=== PATIENT | female | born 1950 | race African-American/Black ===

== ENCOUNTER 2019-06-08 15:28 | Inpatient (IN) | payer MEDICARE, OTHER ==
[~2019-06-08] VITALS: Ht 165.1 cm; Wt 43.2 kg
[2019-06-08] MEDS ORDERED: SODIUM CHLORIDE 0.9% 1,000 ML IV ONE ×2 (16:08)
[2019-06-08] MEDS ORDERED: ONDANSETRON HCL 4 MG/2 ML VIAL IV ONE (16:15)
[2019-06-08 16:21] LABS: Basophils # (auto) 0 uL; Eosinophils # (auto) 0 uL; Eosinophils % (auto) 0.1 % (0.0-7.0); Hematocrit 51.3 % (36.0-46.0); Platelet Count (auto) 184 10^3/uL (140-450); Red Cell Distribution Width 15.9 % (11.8-14.3)
[2019-06-08 16:22] LABS: Basophils % (auto) 0.1 % (0.0-2.0); Hemoglobin 16.1 g/dL (12.2-16.2); Lymphocytes % (auto) 23.4 % (10.0-50.0); Mean Corpuscular Hemoglobin 26.8 pg (28.0-32.0); Mean Corpuscular Hgb Conc. 31.5 g/dL (32.0-36.0); Monocytes % (auto) 11.6 % (0.0-12.0); Neutrophils # (auto) 5.4 uL; Neutrophils % (auto) 64.8 % (37.0-80.0); Nucleated Red Blood Cells % 0.2 %; Red Blood Cells 6.03 10^6/uL (4.0-5.20); White Blood Cell 8.4 10^3/uL (4.4-10.8)
[2019-06-08 16:49] LABS: Albumin 4.5 g/dL (3.4-5.0); Anion Gap 12 (5-15); Blood Urea Nitrogen 36 mg/dL (7-18); Calcium 10.3 mg/dL (8.5-10.1); Carbon Dioxide 21 mmol/L (21-32); Chloride 112 mmol/L (98-107); Glucose 137 mg/dL (74-106); Potassium 3.8 mmol/L (3.5-5.1); Sodium 145 mmol/L (136-145)
[2019-06-08 16:51] LABS: Alanine Aminotransferase 15 U/L (13-56); Alkaline Phosphatase 132 U/L (45-117); Aspartate Aminotransferase 24 U/L (15-37); BUN/Creatinine Ratio 17.1; Bilirubin, Total 0.8 mg/dL (0.2-1.0); GFR African American 30 mL/min; GFR Non-African American 25 mL/min; Lactic Acid w/Reflex 3.3 mmol/L (0.4-2.0); Total Protein 10.5 g/dL (6.4-8.2)
[2019-06-08] MEDS ORDERED: ACETAMINOPHEN 500 MG TAB PO PRN (17:45)
[2019-06-08] MEDS ORDERED: MORPHINE SULF INJ 2 MG/ML SYRINGE 1ML IV PRN ×2 (17:45)
[2019-06-08] MEDS ORDERED: ONDANSETRON HCL 4 MG/2 ML VIAL IV PRN (17:45)
[2019-06-08] MEDS ORDERED: IPRATROPIUM BROM 0.5 MG/2.5ML INH SOL NEB PRN (17:45)
[2019-06-08] MEDS ORDERED: METOCLOPRAMIDE HCL 5MG/ml INJ 2ml VIAL IV ONE (17:45)
[2019-06-08] MEDS ORDERED: ALBUTEROL SULF 2.5 MG/0.5ML(0.5%) NEB SOLN NEB PRN (17:45)
[2019-06-08] MEDS ORDERED: LORazepam 0.5 MG TAB PO PRN (17:45)
[2019-06-08] MEDS ORDERED: NITROGLYCERIN 0.4 MG SL TAB SL PRN (17:45)
[2019-06-08 17:47] LABS: Amylase 170 U/L (25-115); Lipase 99 U/L (73-393)
[2019-06-08 17:53] LABS: Urine Bacteria MANY /hpf (None Seen); Urine Blood 1+ /uL (Negative); Urine Hyaline Cast FEW /lpf (0 - 2); Urine Mucus FEW (None Seen); Urine Specific Gravity 1.015 (1.001-1.035); Urine WBC 153 /hpf (0 - 5)
[2019-06-08] MEDS: SODIUM CHLORIDE 0.9% 1,000 ML IV SCH (17:54)
[2019-06-08] MEDS: cefTRIAXone 1GM/50ML D5W 50 ML IV SCH (18:00)
--- NOTE | 2019-06-08 18:35 | NUR ---
PT ASSESSED FOR PRN TX. PT IS RESTING WITH NO SOB NOTED. TX IS NOT INDICATED AT THIS TIME. HR 91 RR 20 95% ON ROOM AIR. B/S DECREASED.
[2019-06-08 19:22] VITALS: BP 119/64
--- NOTE | 2019-06-08 20:35 | NUR ---
Telemetry admit from ER CESAR ZAMORAOLINDAYASMIN admitted to Telemetry unit after SBAR received. Patient oriented to Huey Rodriguez, primary RN, unit, room, bed, and unit policies regarding patient care and visiting hours. Patient now on continuous telemetry monitoring, tele box #19. Patient weighed by bedscale. The patient is uncooperative stating that she is tired and angry because she has been in the ER all day. She states that she just wants to sleep. Encouraged to call if they need something.
[2019-06-08 20:45] VITALS: BP 140/88
[2019-06-08] MEDS: DOCUSATE SOD 100 MG CAP PO SCH (21:32)
[2019-06-08] MEDS: ATORVASTATIN 20 MG TAB PO SCH (21:32)
[2019-06-08] MEDS: METOPROLOL TARTRATE 50 MG TAB PO SCH (21:33)
[2019-06-08] MEDS ORDERED: DOCUSATE SOD 100 MG CAP PO SCH (22:00)
[2019-06-08 22:10] VITALS: BP 112/67
[2019-06-09] MEDS: HYDROcodone-ACET 5/325MG TAB PO PRN (01:22)
--- NOTE | 2019-06-09 02:00 | NUR ---
IV removal Patient's right wrist IV infiltrated and has been removed. DC'd with clean sterile technique, catheter fully intact. Pressure dressing applied to site. Patient tolerated well.
--- NOTE | 2019-06-09 03:15 | NUR ---
IV insertion IV access obtained, via clean sterile technique by inserting 22 gauge catheter at the right upper FA after 3 attempt(s). IV secured properly. No trauma to site. Patient tolerated well.
[2019-06-09] MEDS: SODIUM CHLORIDE 0.9% 1,000 ML IV SCH ×3 (03:48→18:44)
[2019-06-09 05:46] VITALS: BP 135/64
--- NOTE | 2019-06-09 06:45 | NUR ---
IV LEAK Patient's right forearm IV began to leak. Unable to correct the leaking from IV. Will endorse to day shift.
--- NOTE | 2019-06-09 07:15 | NUR ---
Opening Shift Note Assumed care of patient, awake and alert. No S/S of distress/SOB or pain. Instructed on POC and to call for assist PRN, will continue to monitor for changes. Bed in lowest position, bed alarm on, call light within reach, bed rails up x2 and locked. Signed: 06/09/19 at 1056 by JACKIE CARDOSO <Co-Signature Required> Co-Signed: 06/09/19 at 1056 by Martha Caban RN
[2019-06-09 08:00] VITALS: BP 153/77
--- NOTE | 2019-06-09 08:00 | NUR ---
IV ASSESSMENT ATTEMPTED TO FLUSH IV. IV IS LEAKING. UNABLE TO OBTAIN IV ACCESS AT THIS TIME
--- NOTE | 2019-06-09 08:01 | NUR ---
Ultrasound Entry Level Finance at bedside completing BLE arterial Ultrasound. Signed: 06/09/19 at 0832 by JACKIE CARDOSO <Co-Signature Required> Co-Signed: 06/09/19 at 0832 by Martha Caban RN
--- NOTE | 2019-06-09 08:52 | NUR ---
PAGED PAGED PSYCHOSOCIAL REHABILITATION COUNSELOR HOSPITALIST IN ORDER TO OBTAIN ORDER FOR MIDLINE
[2019-06-09 09:00] VITALS: BP 153/77
--- NOTE | 2019-06-09 09:11 | NUR ---
Bilat LE US results Received call from radiology. Reported US results. See imaging for further information. Per radiology recommended further eval of BLE and ABD pelvis. Per radiology patient is neg for DVT in bilat LE
[2019-06-09] MEDS: CITALOPRAM HYDROBR 20 MG TAB PO SCH (09:41)
[2019-06-09] MEDS: METOPROLOL TARTRATE 50 MG TAB PO SCH (09:42)
[2019-06-09] MEDS: AMIODARONE HCL 200 MG TAB PO SCH (09:42)
[2019-06-09] MEDS: DOCUSATE SOD 100 MG CAP PO SCH ×2 (09:42→22:05)
[2019-06-09] MEDS: FAMOTIDINE 20 MG TAB PO SCH (09:43)
[2019-06-09] MEDS: ASPirin 81 mg TAB PO SCH (09:43)
[2019-06-09] MEDS: ENSURE CLEAR Mixed Berry 8oz Carton PO SCH ×3 (09:44→18:44)
[2019-06-09] MEDS: ENOXAPARIN SOD 30 MG/0.3 ML SYRINGE SC SCH (09:44)
[2019-06-09] MEDS: LACTULOSE 20Gm/30ML SOLN PO SCH (09:44)
--- NOTE | 2019-06-09 10:21 | NUR ---
Usama CUELLAR RETURN CALL RECEIVED CALL FROM Usama CUELLAR. RECEIVED ORDERS. REREAD ORDERS BACK TO . WILL CONT TO MONITOR.
--- NOTE | 2019-06-09 10:40 | NUR ---
MIDLINE Midline RN at bedside performing procedure. Signed: 06/09/19 at 1054 by JACKIE CARDOSO SN <Co-Signature Required> Co-Signed: 06/09/19 at 1054 by Martha Caban RN
--- NOTE | 2019-06-09 11:00 | NUR ---
WOUND CARE NOTE: IN TO SEE PATIENT AT THIS TIME PER WOUND CONSULT REQUEST. PATIENT HAS CONTRACTED LIMBS. PATIENT CURRENT RECEIVING MIDLINE AT THIS TIME, UNABLE TO TURN PATIENT TO ASSESS SACRUM. PER BEDSIDE NURSE, PATIENT HAS BLANCHABLE RED SACRUM. BEDSIDE NURSE WILL PHOTOGRAPH WOUND SHORTLY. PATIENT ADMITTED TO [facility] WITH DIAGNOSIS OF FAILURE TO THRIVE. CURRENT GEETA SCORE IS 12. PATIENT ONLY WEIGHS 35 KG. DIETARY CONSULT HAS BEEN ORDERED. SKIN/WOUND CARE PLAN IMPLEMENTED. SPECIALTY AIR MATTRESS ORDERED AT THIS TIME. PATIENT TO BE PLACED, PENDING DELIVERY BY [facility]. ADDED RECOMMENDATIONS: BID/PRN APPLICATIONS WITH MOISTURE BARRIER CREAM, OPTIFOAM GENTLE SACRAL DRESSING PREVENTATIVE, FREQUENT TURN SCHEDULE Q 2 HOURS, PRN CONDITION PERMITS, WITH PRESSURE REDISTRIBUTION USING PILLOWS/WEDGES, CONTINUED MONITORING BY WOUND CARE TEAM.
--- NOTE | 2019-06-09 11:04 | NUR ---
Midline Placement Patient educated on need for midline placement. All risks and benefits explained and all questions and concerns addresses prior to procedure. 20g/8cm midline inserted via right brachial vein using Ultrasound. Sterile technique utilized. Blood return obtained from single lumen and flushed easily with NS using proper technique. Midline secured with saline lock; biodisc and occlusive dressing applied. Primary RN notified. Midline lot #[id number].
--- NOTE | 2019-06-09 11:05 | NUR ---
Midline Update Midline placement completed. Right upper arm midline 20 gauge inserted. Lab at bedside. Morning labs obtained. Signed: 06/09/19 at 1108 by JACKIE CARDOSO SN <Co-Signature Required> Co-Signed: 06/09/19 at 1108 by Martha Caban RN
--- NOTE | 2019-06-09 11:09 | NUR ---
Nutrition consult/assessment Notes please see attached link for complete assessment Est. Needs IBW 56 [id number] kcal (25-30 kcal/kgBW), 44-56 gms pro (0.8-1.0 gms/kgBW r/t elev RFT). Will continue to monitor pertinent labs and reassess nutrient need prn. Addendum: 06/09/19 at [address] Amended: Links added.
[2019-06-09 11:22] LABS: Basophils # (auto) 0 uL; Basophils % (auto) 0.1 % (0.0-2.0); Eosinophils # (auto) 0.1 uL; Hemoglobin 11.7 g/dL (12.2-16.2); Mean Corpuscular Hgb Conc. 30.9 g/dL (32.0-36.0); Mean Corpuscular Volume 86.6 fL (80.0-100.0); Monocytes # (auto) 0.8 uL; Nucleated Red Blood Cells % 0.1 %
[2019-06-09] MEDS: cefTRIAXone 1GM/50ML D5W 50 ML IV SCH (11:23)
--- NOTE | 2019-06-09 11:23 | NUR ---
Low heart rate Received call from [facility], patient's heart rate was ranging from 60's, bradycardia at 50s then back to 60's/70s'. Entered room, found patient awake and alert watching TV. Asymptomatic to dudley cardia. No reports of CP, SOB, dizziness, change in vision or fatigue. Will notify
[2019-06-09 11:24] LABS: Hematocrit 37.9 % (36.0-46.0); Lymphocytes # (auto) 2.7 uL; Lymphocytes % (auto) 31.2 % (10.0-50.0); Mean Corpuscular Hemoglobin 26.8 pg (28.0-32.0); Neutrophils # (auto) 5.2 uL; Neutrophils % (auto) 58.7 % (37.0-80.0); Platelet Count (auto) 134 10^3/uL (140-450); Red Blood Cells 4.38 10^6/uL (4.0-5.20); Red Cell Distribution Width 16.2 % (11.8-14.3); White Blood Cell 8.8 10^3/uL (4.4-10.8)
[2019-06-09 11:29] LABS: BUN/Creatinine Ratio 22.9; Calcium 9.1 mg/dL (8.5-10.1); Potassium 3.8 mmol/L (3.5-5.1)
--- NOTE | 2019-06-09 12:15 | NUR ---
HOME MED-AMIODARONE PER PATIENT DUE TO HX OF ME SHE WAS PLACED ON THE ANTIARRHYTHMIC DUE TO HER HEART "SKIPPING BEATS". PER PATIENT SHE ALSO REPORTS SHE HAS AN EXTENSIVE HISTORY OF DRUG USE OF CRACK COCAINE.
--- NOTE | 2019-06-09 12:17 | NUR ---
at bedside Usama Taveras at bedside
--- NOTE | 2019-06-09 12:25 | NUR ---
MD-LOW HEART RATE REVIEWED CURRENT VITAL SIGNS WITH Usama CUELLAR. PER D/C METOPROLOL AT THIS TIME.
--- NOTE | 2019-06-09 12:26 | NUR ---
LOW HEART RATE PER MD NO NEW INTERVENTION, CONT TO MONITOR HEART RATE
[2019-06-09 13:00] VITALS: BP 150/77
--- NOTE | 2019-06-09 13:04 | NUR ---
CARDIO CONSULT IZABELA CUEVAS AT BEDSIDE
--- NOTE | 2019-06-09 17:14 | NUR ---
assessment Patient is a 68 year old female who is alert and answering appropriately. Patient informed me prior to admission she lived home with her sister Alisha Palma and functioned with assistance of her grandson daniel. Patient informed me she will return home on discharge and Daniel will transport her home. Patient informed me she has a wheelchair for home use. Patient informed me she feels safe returning home on discharge. Patient may benefit from home health for safety eval on discharge. Patient verbalized understanding and agreed to discharge plan home on discharge. Addendum: 06/09/19 at 1717 by Gita NEGRO Amended: Links added.
--- NOTE | 2019-06-09 17:16 | NUR ---
LIVING ARRANGEMENTS PER PATIENT SHE LIVES WITH HER SISTER DAGOBERTO AND DAGOBERTO'S . PER PATIENT SHE WILL GO BACK HOME WITH SISTER UPON C/D
[2019-06-09 18:40] VITALS: BP 182/89
--- NOTE | 2019-06-09 21:00 | NUR ---
Pt refused Vital signs.
--- NOTE | 2019-06-09 21:10 | NUR ---
Respiratory note: PT ASSESSED FOR PRN MED NEB TX. HR 84, RR 18, SPO2 98% ON R/A, BS CLEAR. NO SIGNS OF ANY RESPIRATORY DISTRESS NOTED. ADVISED PT TO CALL IF TX IS NEEDED.
[2019-06-09] MEDS: ATORVASTATIN 20 MG TAB PO SCH (22:05)
--- NOTE | 2019-06-10 | NUR ---
Pt placed on specialty air bed.
[2019-06-10 05:00] VITALS: BP 154/87
[2019-06-10] MEDS: SODIUM CHLORIDE 0.9% 1,000 ML IV SCH ×2 (05:29→09:38)
[2019-06-10 08:00] VITALS: BP 155/80
[2019-06-10] MEDS: ENSURE CLEAR Mixed Berry 8oz Carton PO SCH ×3 (08:00→18:33)
--- NOTE | 2019-06-10 08:00 | NUR ---
Opening Shift Note Assumed care of patient, awake and alert. No S/S of distress/SOB or pain. Bed is in lowest, locked position with side rails up x2 and call light within reach. Instructed on POC and to call for assist PRN, will continue to monitor for changes Q1hr and PRN.
[2019-06-10 09:00] VITALS: BP 180/96
[2019-06-10] MEDS: cefTRIAXone 1GM/50ML D5W 50 ML IV SCH (09:36)
[2019-06-10] MEDS: LACTULOSE 20Gm/30ML SOLN PO SCH (10:00)
[2019-06-10] MEDS: AMIODARONE HCL 200 MG TAB PO SCH (10:00)
--- NOTE | 2019-06-10 10:05 | NUR ---
ELEVATED BP BP ASSESSED: 180/96 AND HR 54. PAGED CARDIOLOGY FOR ORDERS. IZABELA WORKMAN RETURNED PAGE. RECEIVED ORDER TO CANCEL STRESS TEST AND OBTAINED ORDER FOR SCHEDULED AND PRN BP MEDS.
[2019-06-10] MEDS: CITALOPRAM HYDROBR 20 MG TAB PO SCH (10:15)
[2019-06-10] MEDS ORDERED: amLODIPine BESYLATE 5 MG TAB PO ONE (10:15)
[2019-06-10] MEDS: DOCUSATE SOD 100 MG CAP PO SCH ×3 (10:16→21:48)
[2019-06-10] MEDS: ASPirin 81 mg TAB PO SCH (10:16)
[2019-06-10] MEDS: FAMOTIDINE 20 MG TAB PO SCH (10:16)
[2019-06-10] MEDS: ENOXAPARIN SOD 30 MG/0.3 ML SYRINGE SC SCH (10:24)
[2019-06-10] MEDS: hydrALAZINE HCL 20 MG/ML VL IV PRN (10:25)
--- NOTE | 2019-06-10 10:25 | NUR ---
ANIMAL GROOMER AT BEDSIDE ANIMAL GROOMER JI IN TO SEE PATIENT. OBTAINED INFORMED CONSENT FOR PROCEDURE TOMORROW. PT VERBALIZED UNDERSTANDING.
[2019-06-10] MEDS: HYDROcodone-ACET 5/325MG TAB PO PRN (10:26)
--- NOTE | 2019-06-10 10:50 | NUR ---
MD AT BEDSIDE DR CUELLAR UPDATING PATIENT ON POC. VERBALIZED UNDERSTANDING.
[2019-06-10] MEDS ORDERED: METOPROLOL TARTRATE 50 MG TAB PO ONE (11:00)
--- NOTE | 2019-06-10 12:50 | NUR ---
AMA TO SMOKE PATIENT EXPRESSING DESIRE TO GO SMOKE. AMA TO SMOKE SIGNED. FAMILY TO TAKE PT OUT IN WHEELCHAIR. EXPLAINED THE RISKS OF SMOKING, PT VERBALIZED UNDERSTANDING. INFORMED PT SHE NEEDS TO BE BACK WITHIN 30 MINUTES.
[2019-06-10 13:00] VITALS: BP 158/92
--- NOTE | 2019-06-10 13:10 | NUR ---
PT RETURNED TO UNIT PATIENT ESCORTED BY FAMILY RETURNED TO UNIT FROM SMOKING WITHOUT INCIDENT.
--- NOTE | 2019-06-10 15:05 | NUR ---
ASSESSED PT FOR PRN MED NEB TX. PT ON RA WITH SPO2 90%, HR 89, RR 20, WITH DIMINISHED BS. NO SOB NO RESPIRATORY DISTRESS NOTED. PT AWAKE AND ALERT AND AWARE OF MED NEB BREATHING TX.
[2019-06-10 17:00] VITALS: BP_SYST 126; BP_SYST 147; BP_DIAS 61; BP_DIAS 79
[2019-06-10 18:00] VITALS: BP 132/78
--- NOTE | 2019-06-10 19:28 | NUR ---
Opening Shift Note Assumed care of patient, awake and alert x 4. No S/S of distress/SOB. Bed is in lowest position and locked. Call light within reach. Board updated. Huertas catheter secured to leg and collection bag hangs below bladder to non-moveable part of bedframe.Specialty mattress on bedframe. Instructed on POC and to call for assist PRN, will continue to monitor for changes Q1hr and PRN.
[2019-06-10] MEDS: ATORVASTATIN 20 MG TAB PO SCH (21:14)
--- NOTE | 2019-06-10 21:53 | NUR ---
Dinoing hospitalist because patient has had sustained elevated lactic acid trending upward. Patient admitted to lower quadrant abdominal pain and had evidence of UTI on admission, currently receiving Rocephin 1 gm IV Daily. Current lactic acid levels from today were 5.6 at 1812, 3.3 before that. Patient also has increased BUN/ Creatinine, 40 and 1.75. Urine output has been 100 ml since 1900, 330 mls during previous shift. Vitals: Temp: 98.2, HR: 76, BP: 132/78, O2 sat: 95% on RA, RR: 18.
[2019-06-10] MEDS ORDERED: METOPROLOL TARTRATE 50 MG TAB PO SCH (22:00)
--- NOTE | 2019-06-10 22:56 | NUR ---
Spoke to IZABELA Gaitan. Orders received: 1) Lactic Acid for 0300, 2) 1 liter bolus of 0.9 sodium chloride over one hour now. Orders repeated, verified, and placed.
[2019-06-10] MEDS ORDERED: SODIUM CHLORIDE 0.9% 1,000 ML IV ONE (23:00)
[2019-06-11] MEDS: SODIUM CHLORIDE 0.9% 1,000 ML IV SCH (00:54)
[2019-06-11 05:00] VITALS: BP 120/89
--- NOTE | 2019-06-11 06:18 | NUR ---
CHG bath has been performed. New linen over bedframe. Patient placed in clean gown.
[2019-06-11] MEDS: ENSURE CLEAR Mixed Berry 8oz Carton PO SCH ×3 (08:00→18:09)
[2019-06-11 09:00] VITALS: BP 167/80
[2019-06-11] MEDS: CITALOPRAM HYDROBR 20 MG TAB PO SCH (09:22)
[2019-06-11] MEDS: ASPirin 81 mg TAB PO SCH (09:22)
[2019-06-11] MEDS: LACTULOSE 20Gm/30ML SOLN PO SCH (09:22)
[2019-06-11] MEDS: ENOXAPARIN SOD 30 MG/0.3 ML SYRINGE SC SCH (09:23)
[2019-06-11] MEDS: FAMOTIDINE 20 MG TAB PO SCH (09:23)
[2019-06-11] MEDS: AMIODARONE HCL 200 MG TAB PO SCH (09:23)
[2019-06-11] MEDS: DOCUSATE SOD 100 MG CAP PO SCH ×2 (09:23→22:15)
[2019-06-11] MEDS: cefTRIAXone 1GM/50ML D5W 50 ML IV SCH (09:24)
[2019-06-11 10:24] LABS: INR 1.26 (0.9-1.15); Partial Thromboplastin Time 31.7 sec (23.64-32.05)
[2019-06-11 10:29] LABS: Basophils # (auto) 0 uL; Basophils % (auto) 0.3 % (0.0-2.0); Eosinophils # (auto) 0.1 uL; Hematocrit 40.1 % (36.0-46.0); Monocytes # (auto) 0.6 uL; Neutrophils # (auto) 3.6 uL
[2019-06-11 10:33] LABS: Eosinophils % (auto) 2.2 % (0.0-7.0); Hemoglobin 13.1 g/dL (12.2-16.2); Lymphocytes # (auto) 1.5 uL; Lymphocytes % (auto) 25.5 % (10.0-50.0); Mean Corpuscular Hemoglobin 27.1 pg (28.0-32.0); Mean Corpuscular Hgb Conc. 32.6 g/dL (32.0-36.0); Mean Corpuscular Volume 83.2 fL (80.0-100.0); Monocytes % (auto) 10.4 % (0.0-12.0); Neutrophils % (auto) 61.6 % (37.0-80.0); Nucleated Red Blood Cells % 0.4 %; Platelet Count (auto) 134 10^3/uL (140-450); Red Blood Cells 4.82 10^6/uL (4.0-5.20); Red Cell Distribution Width 15.6 % (11.8-14.3); White Blood Cell 5.8 10^3/uL (4.4-10.8)
[2019-06-11 11:03] LABS: Calcium 8.7 mg/dL (8.5-10.1); Potassium 3.6 mmol/L (3.5-5.1)
--- NOTE | 2019-06-11 11:42 | NUR ---
Care transferred to FITO Nice.
--- NOTE | 2019-06-11 11:50 | NUR ---
Opening Note Received report form Job PAYTON. Patient is awake, alert and oriented. Patient is sitting in wheelchair in hallway. Patient is angry stating she wants to be taken outside to smoke. Patient has a Huertas catheter in place, patent and draining pale yellow urine. Reviewed plan of care with patient, patient verbalized understanding. Will continue to monitor Q1 and PRN.
--- NOTE | 2019-06-11 12:33 | NUR ---
Patient taken down to slab lifting supervisor
[2019-06-11 13:00] VITALS: BP 142/83
--- NOTE | 2019-06-11 14:28 | NUR ---
Call from laborer bituminous paving lab rep called and informed this RN the patient not having the procedure today per MD. Patient to be brought back up to room.
--- NOTE | 2019-06-11 14:55 | NUR ---
Patient back to room
--- NOTE | 2019-06-11 15:25 | NUR ---
Respiratory note: ASSESSED PATIENT FOR PRN BREATHING TX. NO PRN BREATHING TX INDICATED. PATIENT IS AWAKE AND ALERT, NO RESPIRATORY DISTRESS NOTED. PATIENT IS ON ROOM AIR SPO2 94%, RR 20, HR 68. PATIENT IS AWARE TO HAVE RT PAGED IF BREATHING TX IS NEEDED. WILL CONTINUE TO MONITOR PATIENT.
[2019-06-11 17:00] VITALS: BP 194/110
--- NOTE | 2019-06-11 18:02 | NUR ---
Patient resting in bed No signs or symptoms of distress noted at this time. Will continue to monitor Q1 hour and PRN.
--- NOTE | 2019-06-11 18:25 | NUR ---
elevated blood pressure assessed patients blood pressure, reading was 185/104. PRN hydralazine given. Will continue to monitor and reassess.
[2019-06-11] MEDS: hydrALAZINE HCL 20 MG/ML VL IV PRN (18:31)
--- NOTE | 2019-06-11 18:50 | NUR ---
Reassessed blood pressure Reassessed patients blood pressure 158/78 heart rate 88. Will continue to monitor Q1 hour and PRN.
--- NOTE | 2019-06-11 19:17 | NUR ---
Closing Note Report given to film processing shift supervisor RN. Patient resting in bed, no signs or symptoms of distress noted at this time.
[2019-06-11 20:00] VITALS: BP 185/104
--- NOTE | 2019-06-11 20:50 | NUR ---
Respiratory note: PT ASSESSED FOR PRN MED NEB TX. HR 86, RR 16, SPO2 99% ON R/A. NO SIGNS OF ANY RESPIRATORY DISTRESS NOTED. ADVISED PT TO CALL IF TX NEEDED.
[2019-06-11 22:00] VITALS: BP 168/95
[2019-06-11] MEDS: ATORVASTATIN 20 MG TAB PO SCH (22:15)
[2019-06-12] MEDS: SODIUM CHLORIDE 0.9% 1,000 ML IV SCH ×3 (00:01→21:30)
--- NOTE | 2019-06-12 01:40 | NUR ---
PT HAD LARGE FORMED BM IN THE BED. COMPLETE LINEN CHANGE WITH KAREL CARE AND NEW GOWN.PT PULLED UP IN BED. WHILE CHANGING LINEN A BRANCH BANKER AND A CIGARETTE WAS FOUND IN THE BED UNDERNEATH THE PATIENT. BRANCH BANKER LABELED AND PLACED AT NURSES STATION.WILL CONTINUE TO MONITOR.
[2019-06-12 02:52] VITALS: BP 168/95
[2019-06-12] MEDS: hydrALAZINE HCL 20 MG/ML VL IV PRN ×2 (04:16→15:32)
[2019-06-12 05:00] VITALS: BP 134/68
--- NOTE | 2019-06-12 07:09 | NUR ---
pt assessed for prn hhn tx. pt is on room air, spo2 96%, hr 87, rr 17. no s.s of respiratory distress. pt aware to have rt paged if sob or tx needed.
--- NOTE | 2019-06-12 07:45 | NUR ---
Morning note patient resting in bed with eyes closed, respirations even and unlabored, no distress noted. Fall precautions in place with bed in lowest locked position with call light within reach. Patient on speciality mattress per MD's orders.
[2019-06-12] MEDS: ENSURE CLEAR Mixed Berry 8oz Carton PO SCH ×3 (08:00→18:00)
--- NOTE | 2019-06-12 08:15 | NUR ---
Suctioning set up at bedside for safety. Strict aspirations precautions in place.
[2019-06-12 09:00] VITALS: BP 139/77
--- NOTE | 2019-06-12 09:30 | NUR ---
Requested SCDs per MD's order. norman Schneider, verbalized understanding.
[2019-06-12] MEDS: LACTULOSE 20Gm/30ML SOLN PO SCH (09:54)
[2019-06-12] MEDS: FAMOTIDINE 20 MG TAB PO SCH (09:55)
[2019-06-12] MEDS: CLOPIDOGREL BISULFATE 75 MG TAB PO SCH (09:56)
[2019-06-12] MEDS: AMIODARONE HCL 200 MG TAB PO SCH (09:56)
[2019-06-12] MEDS: DOCUSATE SOD 100 MG CAP PO SCH ×2 (10:00→21:23)
[2019-06-12] MEDS: CITALOPRAM HYDROBR 20 MG TAB PO SCH (10:03)
[2019-06-12] MEDS: cefTRIAXone 1GM/50ML D5W 50 ML IV SCH (10:05)
[2019-06-12] MEDS: ASPirin 81 mg TAB PO SCH (10:06)
--- NOTE | 2019-06-12 10:50 | NUR ---
Swallow evaluation placed Patient coughed after drinking thin liquids and has food particles sitting in her mouth. Drool coming from her mouth. Patient swallowed pills when placed in applesauce with no complications noted.
--- NOTE | 2019-06-12 11:15 | NUR ---
MD was at bedside - Dr. Usama Taveras POC discussed with this RN. Orders received and read back to verify.
--- NOTE | 2019-06-12 11:50 | NUR ---
Patient attempting to give staff members santoyo to purchase cigarettes Smoking cessation education provided to the patient. Patient verbalized understanding. Patient requesting staff member to transport her to the smoking area. Informed patient that staff members cannot do that. Patient verbalized understanding.
--- NOTE | 2019-06-12 12:03 | NUR ---
Swallow evaluation completed.
--- NOTE | 2019-06-12 12:18 | NUR ---
SWALLOW EVALUATED WITH NURSING PRESENT. PATIENT ABLE TO TOLERATE PUREE DIET TEXTURE WITH THIN LIQUIDS. PATIENT UNABLE TO COMPLETE SWALLOW OF MECHANICAL SOFT. RECOMMEND NO STRAWS.
--- NOTE | 2019-06-12 12:41 | NUR ---
Patient requesting family be called This RN called the phone numbers obtained from patient for Sharad (patient's brother) and Alisha (patient's sister). The phone number for Sharad is incorrect. Female answered and stated "you have the wrong number. No one here with the name Sharad." No answer from the phone number for Alisha. Phone number for Sharad listed under next of kin called ([phone]), different number from previous number called. Female answered and stated "you have the wrong number." Updated patient. Patient verbalized understanding.
[2019-06-12 13:00] VITALS: BP 156/89
--- NOTE | 2019-06-12 14:00 | NUR ---
Patient refused to turn Pressure ulcer prevention education provided to the patient. Patient verbalized understanding. Patient refused to turn. Patient able to turn self independently. Addendum: 06/12/19 at 1507 by Charlotte Whitney RN Amended: Links added.
--- NOTE | 2019-06-12 15:20 | NUR ---
Nutrition Follow-up Notes Wt.: 54.0 kg as of yesterday. Pt's asleep, no immediate family member at bedside when rounded this morning. Pt' no signs of distress noted, had swallow eval by ST earlier, currently on Pureed Cardiac diet with fair PO intake aeb 70% ave. consumed meals (x6) in last 2.5 days. Est. Needs IBW 56 [id number] kcal (25-30 kcal/kgBW), 44-56 gms pro (0.8-1.0 gms/kgBW r/t elev RFT). Will continue to monitor pertinent labs and reassess nutrient need prn. Labs: No new labs today; 06/11/19 Gluc 119 H, Cl 113 H Skin: Trace scale 19, low risk, skin intact per highway traffic control technician. GI: Pt had 1 BM this morning per highway traffic control technician. PES: Altered nutrition related lab values r/t acute/chronic medical condition aeb elev RFT hypercalcemia, hyperglycemia Increased nutrient needs r/t current/chronic/nutritional status aeb 95% IBW, BMI 19.8 kg/m2, decreased muscle mass, on ONS with <75% consumed meals Will continue to monitor PO intake, skin status, pertinent labs and weight trend. F/u in 3 to 5 days. Rec.: 1.) Consider Ensure Enlive 1 carton TID instead of ensure clear. 2.) Continue close supervision and feeding assistance prn during meals. 3.) Refer pt to CDE/RD for further nutrition education and weight monitoring upon discharge. 4.) Continue current plan of care.
[2019-06-12 17:00] VITALS: BP 121/81
--- NOTE | 2019-06-12 18:30 | NUR ---
Closing note patient resting in bed with even and unlabored respirations, no distress noted. Fall precautions in place with bed in lowest locked position and call light within reach. Suction set up at bedside for safety. Strict aspiration precautions in place. Patient able to turn self independently. Bilateral SCDs in place per MD's order. Addendum: 06/12/19 at 1922 by Charlotte Whitney RN Patient's personal wheelchair at bedside.
--- NOTE | 2019-06-12 19:10 | NUR ---
Care endorsed to FITO Richard.
--- NOTE | 2019-06-12 20:00 | NUR ---
open note assumed care of pt. upon entering room pt awake, alert and oriented x4. bed locked, low and 2x rails up. pt updated on plan of care. pt on room air, no distress noted or expressed. pt had no questions at this time. call light in reach, will round q1hr and prn. will turn q2hr and prn.
[2019-06-12 21:00] VITALS: BP 149/85
[2019-06-12] MEDS: ATORVASTATIN 20 MG TAB PO SCH (21:16)
[2019-06-12] MEDS: HYDROcodone-ACET 5/325MG TAB PO PRN (21:18)
[2019-06-13 04:46] VITALS: BP 158/78
[2019-06-13] MEDS: hydrALAZINE HCL 20 MG/ML VL IV PRN ×2 (04:54→18:04)
--- NOTE | 2019-06-13 08:00 | NUR ---
Morning note patient resting in bed with eyes closed, respirations even and unlabored, no distress noted. Fall precautions in place with bed in lowest locked position with call light within reach. Patient on speciality mattress per MD's orders. Patient's personal wheelchair at bedside. SCDs to BLE per MD's order. Will continue to monitor q1hr & PRN.
[2019-06-13 09:00] VITALS: BP 165/79
--- NOTE | 2019-06-13 09:10 | NUR ---
RE: elevated BP BP 165/79. Unable to administer PRN BP medications at this time per MD's orders. Will continue to monitor q1hr & PRN.
[2019-06-13] MEDS: CLOPIDOGREL BISULFATE 75 MG TAB PO SCH (09:12)
[2019-06-13] MEDS: cefTRIAXone 1GM/50ML D5W 50 ML IV SCH (09:12)
[2019-06-13] MEDS: ASPirin 81 mg TAB PO SCH (09:13)
[2019-06-13] MEDS: FAMOTIDINE 20 MG TAB PO SCH (09:15)
[2019-06-13] MEDS: CITALOPRAM HYDROBR 20 MG TAB PO SCH (09:17)
[2019-06-13] MEDS: LACTULOSE 20Gm/30ML SOLN PO SCH (09:20)
[2019-06-13] MEDS: DOCUSATE SOD 100 MG CAP PO SCH ×2 (09:20→21:45)
[2019-06-13] MEDS: ENSURE CLEAR Mixed Berry 8oz Carton PO SCH ×3 (09:20→18:37)
[2019-06-13] MEDS: AMIODARONE HCL 200 MG TAB PO SCH (09:20)
[2019-06-13] MEDS: SODIUM CHLORIDE 0.9% 1,000 ML IV SCH ×2 (09:20→12:28)
[2019-06-13] MEDS: HYDROcodone-ACET 5/325MG TAB PO PRN ×2 (09:23→18:03)
--- NOTE | 2019-06-13 10:45 | NUR ---
MD was at bedside - Dr. Usama Taveras Notified MD of patient's elevated BP and not able to administer PRN BP medications. MD verbalized understanding. BP to be reassessed when able to administer PRN BP medication.
[2019-06-13 13:00] VITALS: BP 146/81
--- NOTE | 2019-06-13 13:50 | NUR ---
Patient's god-daughter/caregiver at bedside Alisha, patient's god-daughter, at bedside. Updated Alisha on POC and possible discharge on Friday. Alisha verbalized understanding. Alisha and her , Sandro, are the patient's primary caregivers and who the patient resides with. Updated phone numbers received. Alisha- Sandro Alisha stated "We haven't seen Sharad, her brother, in over a year." Alisha to be listed as the next of kin.
[2019-06-13 17:00] VITALS: BP 171/94
--- NOTE | 2019-06-13 18:16 | NUR ---
Closing note patient resting in bed with even and unlabored respirations, no distress noted. Fall precautions in place with bed in lowest locked position and call light within reach. Suction set up at bedside for safety. Strict aspiration precautions in place. Patient able to turn self independently. Bilateral SCDs in place per MD's order. Patient's personal wheelchair at bedside.
--- NOTE | 2019-06-13 19:00 | NUR ---
Care endorsed to FITO Richard.
--- NOTE | 2019-06-13 19:12 | NUR ---
ASSESSED PT @ THIS TIME FOR PRN MED NEB TX. PT IS AWAKE AND ALERT AND RESTING COMFORTABLY IN BED. SHE STATES HER BREATHING IS DOING FINE. NO DISTRESS NOTED. CURRENTLY ON R/A W/ SPO2 99%, HR 83, RR 18 AND BS ARE CLEAR AND DIMINISHED T/O. SHE IS AWARE TO CALL IF SHE FEELS SOB.
--- NOTE | 2019-06-13 20:05 | NUR ---
open note assumed care of pt. upon entering room pt awake, alert and oriented x4. pt on room air, no distress noted or expressed. pt bed locked, low and 2x rails up. pt has keller in place. pt updated on plan of care, no questions at this time. pt call light in reach, will round q1hr and prn. will also remind and assist pt to turn q1hr and prn.
[2019-06-13] MEDS: ATORVASTATIN 20 MG TAB PO SCH (21:45)
[2019-06-13 22:00] VITALS: BP 155/76
--- NOTE | 2019-06-13 22:00 | NUR ---
pt given bed bath and total linen change. pt tolerated well.
[2019-06-13 23:30] VITALS: BP 144/74
[2019-06-14] MEDS: SODIUM CHLORIDE 0.9% 1,000 ML IV SCH ×2 (03:30→13:39)
[2019-06-14] MEDS: hydrALAZINE HCL 20 MG/ML VL IV PRN (04:26)
[2019-06-14 05:34] VITALS: BP 161/103
[2019-06-14 05:58] VITALS: BP 148/71
[2019-06-14] MEDS: LACTULOSE 20Gm/30ML SOLN PO SCH ×3 (09:07→10:00)
[2019-06-14] MEDS: FAMOTIDINE 20 MG TAB PO SCH (09:08)
[2019-06-14] MEDS: AMIODARONE HCL 200 MG TAB PO SCH (09:08)
[2019-06-14] MEDS: ASPirin 81 mg TAB PO SCH (09:08)
[2019-06-14] MEDS: cefTRIAXone 1GM/50ML D5W 50 ML IV SCH (09:08)
[2019-06-14] MEDS: CLOPIDOGREL BISULFATE 75 MG TAB PO SCH (09:09)
[2019-06-14] MEDS: ENSURE CLEAR Mixed Berry 8oz Carton PO SCH ×2 (09:09→13:39)
[2019-06-14] MEDS: HYDROcodone-ACET 5/325MG TAB PO PRN ×2 (09:09→15:10)
[2019-06-14] MEDS: CITALOPRAM HYDROBR 20 MG TAB PO SCH ×3 (09:09→10:00)
[2019-06-14] MEDS: DOCUSATE SOD 100 MG CAP PO SCH ×2 (09:09→09:22)
[2019-06-14 09:38] VITALS: BP 156/93
--- NOTE | 2019-06-14 10:20 | NUR ---
Respiratory note: ROUTINE PRN TX ASSESSMENT. HR 91, RR 20, POX 91% ON RA, BREATH SOUNDS ARE CLEAR. NO SOB OR DISTRESS NOTED. PT WAS NOTIFY TO HAVE RT PAGE FOR [place] TX.
[2019-06-14 13:19] VITALS: BP 108/82
[2019-06-14 13:27] VITALS: BP 108/82
--- NOTE | 2019-06-14 17:07 | NUR ---
re-assessment Ss consult [facility] for PT and safety eval. Patient has been given a list of medicare providers. Per patient she has no preference. order faxed to [facility] ph: [phone] fx: [phone] per Olga [facility] has accepted and service to start within 24-48hrs. Pt agrees to discharge plan with [facility]. Addendum: 06/14/19 at 1708 by Gita NEGRO Amended: Links added.
--- NOTE | 2019-06-14 17:23 | NUR ---
Discharge instructions given as ordered. Encourage to follow up with PMD as instructed. All questions and concerns addressed. Patient verbalized understanding. Medication reconciliation form completed and copy given to patient. IV removed with catheter intact, pressure dressing applied, keller catheter removed. Telemetry unit returned to ICU. Patient taken to vehicle via wheelchair with all personal belongings, accompanied by staff and family member. No distress noted at time of departure.
== END 2019-06-14 17:22 | disposition home health service (06) | DRG 299 ==
LOC: ER 15:37 → TELE 15:38 → TELE-WESTW 20:25
PROVIDERS: ADMIT Nurse Practitioner Acute Care; ATTEND Family Medicine
DX: I70.203 Unspecified atherosclerosis of native arteries of extremities, bilateral legs (principal); N17.0 Acute kidney failure with tubular necrosis; N39.0 Urinary tract infection, site not specified; I69.354 Hemiplegia and hemiparesis following cerebral infarction affecting left non-dominant side; R62.7 Adult failure to thrive; E86.0 Dehydration; I10 Essential (primary) hypertension; J44.9 Chronic obstructive pulmonary disease, unspecified; F32.9 Major depressive disorder, single episode, unspecified; K59.00 Constipation, unspecified; E11.51 Type 2 diabetes mellitus with diabetic peripheral angiopathy without gangrene; E78.00 Pure hypercholesterolemia, unspecified; E11.42 Type 2 diabetes mellitus with diabetic polyneuropathy; E78.5 Hyperlipidemia, unspecified; F17.210 Nicotine dependence, cigarettes, uncomplicated; I34.0 Nonrheumatic mitral (valve) insufficiency; I48.91 Unspecified atrial fibrillation; Z79.01 Long term (current) use of anticoagulants; Z85.3 Personal history of malignant neoplasm of breast; I25.2 Old myocardial infarction; Z90.11 Acquired absence of right breast and nipple; Z71.6 Tobacco abuse counseling
CPT/HCPCS: 36415; 51702; 71045; 74176; 80048; 80053; 81001; 82150; 83605; 83690; 84484; 85025; 85610; 85730; 86850; 86900; 86901; 87040; 87086; 87088; 87186; 92610; 93005; 93306; 93926; 96361; 96374; 96375; G0378; J0696; J2405